=== PATIENT | female | born 1955 | race Caucasian/White ===

== ENCOUNTER → 2019-06-14 10:30 | Outpatient (CLI) | payer OTHER, SELFPAY ==
[2019-06-14 12:56] LABS: Alanine Aminotransferase 30 U/L (12-78); Albumin Level 4.3 gm/dL (3.4-5.0); Alkaline Phosphatase 101 U/L (46-116); Aspartate Amino Transferase 20 U/L (15-37); Bilirubin,Direct 0.1 mg/dL (0.0-0.2); Bilirubin,Indirect 0.4 mg/dL (0.0-0.9); Bilirubin,Total 0.5 mg/dL (0.2-1.0); Chol/HDL Ratio 3.5 (1-3.5); Cholesterol 206 mg/dL (140-200); HDL Cholesterol 59 mg/dL (29-89); LDL Cholesterol 118 mg/dL (0-130); Total Protein,Serum 7.5 gm/dL (6.4-8.2); Triglycerides 144 mg/dL (30-200); VLDL Cholesterol 29 mg/dL (0-40)
== END ==
PROVIDERS: Visit Provider Urology
DX: I11.9 Hypertensive heart disease without heart failure (principal); I34.0 Nonrheumatic mitral (valve) insufficiency; E78.49 Other hyperlipidemia; I49.3 Ventricular premature depolarization; I50.30 Unspecified diastolic (congestive) heart failure; I51.89 Other ill-defined heart diseases; R00.2 Palpitations
CPT/HCPCS: 36415; 80061; 80076

== ENCOUNTER → 2020-06-06 14:41 | Outpatient (CLI) | payer BC, MEDICAID, SELFPAY ==
[2020-06-06 16:06] LABS: Basophils # 0.1 K/mm3 (0-0.2); Basophils % 0.6 % (0.1-2.0); Eosinophils # 0.2 K/mm3 (0.0-0.4); Eosinophils % 2.2 % (0.1-12.0); Hematocrit 42.5 % (37.0-47.0); Hemoglobin 14.7 g/dL (12.2-16.2); Lymphocytes # 2.5 K/mm3 (0.7-4.5); Lymphocytes % 29.1 % (10-50); Mean Corpuscular HGB Conc 34.7 g/dL (31.8-35.4); Mean Corpuscular Hemoglobin 33.6 pg (27.0-31.2); Mean Corpuscular Volume 96.9 fl (81-99); Mean Platelet Volume 7.3 fl (7.4-10.4); Monocytes # 0.5 K/mm3 (0.1-1.0); Monocytes % 6.2 % (1.7-9.3); Neutrophils # 5.3 K/mm3 (1.8-7.8); Neutrophils % 61.9 % (37.0-80.0); Platelet Count 296 K/mm3 (142-424); Red Blood Count 4.39 M/mm3 (4.20-5.40); Red Cell Distribution Width 12.7 % (11.5-17.5); White Blood Count 8.6 K/mm3 (4.8-10.8)
[2020-06-06 16:38] LABS: Chloride 104 mmol/L (98-107); Sodium 140 mmol/L (136-145)
[2020-06-06 16:39] LABS: Potassium 4.7 mmoL/L (3.5-5.1)
[2020-06-06 16:41] LABS: Alanine Aminotransferase 28 U/L (12-78); Albumin Level 4.2 g/dl (3.5-5.0); Alkaline Phosphatase 78 U/L (38-126); Anion Gap 13.7 mEq/L (5-15); Aspartate Amino Transferase 31 U/L (14-36); Bilirubin,Direct 0.1 mg/dl (0.0-0.4); Bilirubin,Indirect 0.3 mg/dL (0.0-0.9); Bilirubin,Total 0.4 mg/dl (0.2-1.3); Bilirubin,Unconjugated 0.3 mg/dL (0.0-1.1); Blood Urea Nitrogen 24 mg/dl (7-17); Calcium 9.7 mg/dl (8.4-10.2); Carbon Dioxide 27 mmol/L (22.0-30.0); Cholesterol 191 mg/dl (140-200); Estimated Glomerular Filt Rate 72 ml/min (>60); GFR (African American) 88 ML/MIN (>60); Glucose 115 mg/dl (74-100); HDL Cholesterol 63 mg/dl (40-60); Total Protein,Serum 6.8 g/dl (6.3-8.2); Triglycerides 206 mg/dl (30-150); VLDL Cholesterol 41 mg/dL (0-40)
[2020-06-06 16:53] LABS: Direct LDL Cholesterol 98.62 mg/dL (100-129)
[2020-06-06 16:58] LABS: Free T4 (Free Thyroxine) 1.06 ng/dl (0.78-2.19)
[2020-06-06 17:13] LABS: Thyroid Stimulating Hormone 2.56 uIU/mL (0.465-4.68)
== END ==
PROVIDERS: PCP Family Medicine; Visit Provider Urology
DX: R00.2 Palpitations (principal); R55 Syncope and collapse; I50.30 Unspecified diastolic (congestive) heart failure; E78.5 Hyperlipidemia, unspecified; I11.9 Hypertensive heart disease without heart failure; I34.0 Nonrheumatic mitral (valve) insufficiency; I71.4 Abdominal aortic aneurysm, without rupture
CPT/HCPCS: 36415; 80048; 80061; 80076; 84439; 84443; 85025; 93270

== ENCOUNTER → 2020-06-13 06:00 | Outpatient (CLI) | payer BC, MEDICAID, SELFPAY ==
--- NOTE | 2020-06-13 06:13 | CA_ITS ---
APPROVED REPORT Exam: Pharmacologic Technologist: Tameka Beltrán Ht: 5 ft 4 in Wt: 234 lbs BSA: 2.09 m2 HR: 77 bpm BP: 123/90 mmHg Indications: Shortness of Breath Medical History Medications: Furosemide (LASIX),,,,, Metoprolol,,,,, Losartan,,,,, SpirOnolactone,,,,, Apixaban,,,,, Stress Test Details Test: LEXISCAN HR Resting HR: 79 bpm Max Heart Rate (APMHR): 157 bpm Max HR Achieved: 120 bpm Target HR (85% APMHR): 133 bpm % of APMHR: 76 Recovery HR: 85 bpm BP Resting BP: 123.0/90.0 mmHg Max BP: 140.0/90.0 mmHg Recovery BP: 140.0/90.0 mmHg ECG Clinical Exercise duration: 04:07 min Highest Stage Achieved: Exercise capacity: 1.0 METs Stress ECG Conclusion Resting ECG: Atrial fibrillation, PVCs vs aberrantly conducted beats, right axis deviation Symptoms: Mild shortness of air, malaise. No chest pain Arrhythmias/Ectopy: Frequent PVCs vs aberrantly conducted beats. ST-T Changes: 0.5 mm - [address] depression inferiorly. Conclusion: Non-diagnostic Lexiscan stress due to underlying atrial fibrillation. Myoview images reported separately. Electronically signed by : Tristan Shaw, 06/13/2020 18:43:22
--- NOTE | 2020-06-13 06:13 | NM_ITS ---
APPROVED REPORT Exam: Nuclear Stress Test Indication: SOB, Fatigue, Former tobacco use, Family history Patient Location: Outpatient Stress Tech: Tameka Jerel NM Tech:Linnette Butler, ARRT, RT (R)(N) Ht: 5 ft 4 in Wt: 234 lbs Bra Size: 40D HR: 77 bpm BP: 123/90 mmHg BSA: 2.09 m2 BMI: 40.1 History: SOB, Fatigue, Former tobacco use, Family history Procedure: Patient received a 0.4 mg of intravenous Lexiscan, resting heart rate 77 bpm, resting blood pressure 123/90 mmHg, with Lexiscan maximum heart rate achived was 90 bpm which is 85 % of the maximum predicted heart rate and blood pressure was 135/77 mmHg. With Lexiscan, patient denied any complaint of chest pain. Cardiac Stress and Resting SPECT Images: Cardiac Stress and Resting SPECT images were obtained using technetium 99m Myoview 32.1 mCi stress and 10.48 mCi at rest. The EF is calculated at 60% There is decrease activity in the anterior wall mid aspect which becomes normal on the delayed images as seen on the vertical long axis images suggesting a small area of ischemia vs an area of breast attenuation. Please correlate with ECG findings Conclusion: The EF is calculated at 60% There is decrease activity in the anterior wall mid aspect which becomes normal on the delayed images as seen on the vertical long axis images suggesting a small area of ischemia vs an area of breast attenuation. Please correlate with ECG findings Electronically signed by : Leonidas Stallworth MD 06/13/2020 11:03:50
--- NOTE | 2020-06-13 07:38 | CA_ITS ---
APPROVED REPORT EXAM: Comprehensive 2D, Doppler, and color-flow Echocardiogram Food Technician: Andie Talbert RVT Ht: 5 ft 4 in Wt: 234lbs BSA: 2.09 BP: 141/84 mmHg Indications: SOA,A-FIB,CHF,PALPS,HTN,HLD,MR,NEAR SYNCOPE,AAA EX SMOKER Echo Enhancing Agent Indication: Endocardial border delineation Agent(s) / Amount(s) Used: Definity 2 cc 2D Dimensions LVOT 2.65 cm (M/F) 1.5-2.5 M-Mode Dimensions RVDd 3.39 cm (0.9-2.6) LVDd 4.28 cm (3.5-5.7) LVDs 3.06 cm (3.5-5.7) IVSd 1.13 cm (0.6-1.1) PWd 0.99 cm (0.6-1.1) EF (Teich) 55.40% FS 28.50% EDV (Teich) 82.20 mL ESV (Teich) 36.70 mL Left Ventricle Technically difficult study because of the patient factors and poor acoustic windows. Definity contrast was utilized to delineate the endocardial surfaces. Left atrium is mildly enlarged, left ventricle is normal size, mild concentric left ventricular hypertrophy, visually estimated ejection fraction 50% with no regional wall motion abnormality, endocardial surfaces despite use of Definity contrast is poorly visualized. Diastolic parameters are inconclusive. Right Ventricle Right atrium and right ventricle are mildly enlarged with normal contractility. Aortic Valve Aortic valve is minimally thickened and fibrosed, there is no aortic stenosis or aortic insufficiency. Mitral Valve Mitral valve leaflets are minimally thickened, there is mild mitral regurgitation. Tricuspid Valve Tricuspid valve is grossly normal, there is mild tricuspid regurgitation, tricuspid regurgitation jet velocity is inadequate for calculation of the right ventricular systolic pressure. Pulmonic Valve Pulmonic valve is poorly visualized. Great Vessels Aortic root is normal size. Pericardium No significant pericardial effusion noted. Conclusion 1. Mild biatrial enlargement, normal left ventricular size, mild concentric left ventricular hypertrophy, visually estimated ejection fraction 50% with no regional wall motion abnormality, despite the use of Definity contrast endocardial surfaces are poorly visualized. Diastolic parameters are inconclusive. 2. Mildly enlarged right ventricle with normal contractility. 3. Mild mitral and tricuspid regurgitation. 4. No significant pericardial effusion noted. Electronically signed by : Tristan Shaw, 06/13/2020 20:48:02
--- NOTE | 2020-06-13 08:08 | HMH.ITSHM ---
Current Home Medications as stated by this patient Lynne Hand or liability claims representative. []FUROSEMIDE METOPROLOL SPIRONOLACTONE ELLIQUIS LOSARTAN
== END ==
PROVIDERS: PCP Family Medicine; Visit Provider Urology
DX: R06.00 Dyspnea, unspecified (principal); E78.5 Hyperlipidemia, unspecified; I11.9 Hypertensive heart disease without heart failure; I34.0 Nonrheumatic mitral (valve) insufficiency; I51.89 Other ill-defined heart diseases
CPT/HCPCS: 78452; 93017; 93306; A9502; J2785; Q9957

== ENCOUNTER 2020-06-19 08:29 | Day surgery (SDC) | payer BC, MEDICAID, SELFPAY ==
[2020-06-19] VITALS (13 sets, daily range): BP systolic 84–136; BP diastolic 51–107; PULSE 56–76; RESP 16–18; TEMP 36.7; O2SAT 89–97; BMI 40.8
--- NOTE | 2020-06-19 | IR_ITS ---
APPROVED REPORT Patient Location: Outpatient Compliance Tester: HAROLDO Garcia RT (R) PROCEDURES Left heart catheterization Left ventriculogram Selective coronary angiogram INDICATION Abnormal Myoview, Angina pectoris Informed consent was obtained prior to the procedure. COMPLICATIONS none Estimated Blood Loss: less than 10 mls TECHNIQUE One percent lidocaine used to anesthetize the right anterior aspect of the wrist. The right radial artery was accessed via the Seldinger technique. A 6 [place] sheath was placed in the right radial artery. 2.5 mg of verapamil, 800 mcg of nitroglycerin, 1mg Lidocaine and 5000 U Heparin were given through the arterial sheath. The trap catheter was also used to perform left heart catheterization, left ventriculogram and selective coronary angiogram. At the end of the procedure the sheath was removed good hemostasis was achieved using Traclet band, patient was transferred to the postop holding area in stable condition. ANGIOGRAPHIC RESULTS The left main artery Normal The left anterior descending artery Normal was slow flow consistent with endothelial dysfunction The circumflex artery Nondominant angiographically normal with slow flow consistent with endothelial dysfunction The right coronary artery Large dominant with no atherosclerotic plaque accompanied by slow flow consistent with endothelial dysfunction The DUVALL ventriculogram reveals Preserved 55 to 60% The left ventricular end-diastolic pressure Mildly elevated at 20 mmHg IMPRESSION No angiographic evidence of coronary artery atherosclerosis Slow flow down all 3 coronaries consistent with endothelial dysfunction Preserved ejection fraction Mildly elevated LVEDP PLAN 1. Medical management for endothelial dysfunction Electronically signed by : Juan Villegas, 06/19/2020 10:20:58
[2020-06-19 09:16] LABS: Chloride 107 mmol/L (98-107); Sodium 140 mmol/L (136-145)
[2020-06-19 09:17] LABS: Potassium 4.3 mmoL/L (3.5-5.1)
[2020-06-19 09:19] LABS: Hematocrit 43.2 % (37.0-47.0); Hemoglobin 14.8 g/dL (12.2-16.2); Mean Corpuscular HGB Conc 34.1 g/dL (31.8-35.4); Mean Corpuscular Hemoglobin 33.3 pg (27.0-31.2); Mean Corpuscular Volume 97.5 fl (81-99); Mean Platelet Volume 6.9 fl (7.4-10.4); Platelet Count 278 K/mm3 (142-424); Red Blood Count 4.43 M/mm3 (4.20-5.40); Red Cell Distribution Width 12.1 % (11.5-17.5); White Blood Count 7.8 K/mm3 (4.8-10.8)
[2020-06-19 09:20] LABS: Anion Gap 13.3 mEq/L (5-15); Basophils % 0.5 % (0.1-2.0); Blood Urea Nitrogen 27 mg/dl (7-17); Calcium 9.4 mg/dl (8.4-10.2); Carbon Dioxide 24 mmol/L (22.0-30.0); Creatinine Clearance Estimated 98 mL/min (50-200); Eosinophils # 0.2 K/mm3 (0.0-0.4); Eosinophils % 2.2 % (0.1-12.0); Estimated Glomerular Filt Rate 63 ml/min (>60); GFR (African American) 77 ML/MIN (>60); Glucose 118 mg/dl (74-100); Lymphocytes # 2.5 K/mm3 (0.7-4.5); Lymphocytes % 31.4 % (10-50); Monocytes # 0.4 K/mm3 (0.1-1.0); Monocytes % 5.1 % (1.7-9.3); Neutrophils # 4.7 K/mm3 (1.8-7.8); Neutrophils % 60.8 % (37.0-80.0)
[2020-06-19 09:53] LABS: Coronavirus 19 IgG Antibody Negative (Negative); Coronavirus 19 IgM Antibody Negative (Negative)
== END 2020-06-19 13:02 | disposition home or self-care (01) ==
LOC: CATHLAB 08:30
PROVIDERS: PCP Family Medicine; Visit Provider Internal Medicine
DX: R94.31 Abnormal electrocardiogram [ECG] [EKG] (principal); I11.0 Hypertensive heart disease with heart failure; I50.30 Unspecified diastolic (congestive) heart failure; E78.2 Mixed hyperlipidemia; Z87.891 Personal history of nicotine dependence; Z88.2 Allergy status to sulfonamides; Z88.0 Allergy status to penicillin; Z79.01 Long term (current) use of anticoagulants; Z79.899 Other long term (current) drug therapy; I48.91 Unspecified atrial fibrillation
CPT/HCPCS: 80048; 85025; 86328; 93458; 99152; C1725; C1769; J1644; Q9967

== ENCOUNTER → 2020-06-27 14:29 | Outpatient (CLI) | payer BC, MEDICAID, SELFPAY ==
[2020-06-27 15:31] LABS: Basophils # 0.1 K/mm3 (0-0.2); Basophils % 0.5 % (0.1-2.0); Eosinophils # 0.1 K/mm3 (0.0-0.4); Eosinophils % 1.2 % (0.1-12.0); Hematocrit 43.8 % (37.0-47.0); Hemoglobin 14.3 g/dL (12.2-16.2); Lymphocytes # 2.3 K/mm3 (0.7-4.5); Lymphocytes % 25.4 % (10-50); Mean Corpuscular HGB Conc 32.6 g/dL (31.8-35.4); Mean Corpuscular Hemoglobin 32.2 pg (27.0-31.2); Mean Platelet Volume 7.2 fl (7.4-10.4); Monocytes # 0.5 K/mm3 (0.1-1.0); Neutrophils # 6.1 K/mm3 (1.8-7.8); Neutrophils % 67.8 % (37.0-80.0); Platelet Count 305 K/mm3 (142-424); Red Blood Count 4.43 M/mm3 (4.20-5.40); Red Cell Distribution Width 12.2 % (11.5-17.5)
[2020-06-27 17:00] LABS: Chloride 102 mmol/L (98-107); Potassium 4.9 mmoL/L (3.5-5.1); Sodium 138 mmol/L (136-145)
[2020-06-27 17:03] LABS: Anion Gap 12.9 mEq/L (5-15); Blood Urea Nitrogen 23 mg/dl (7-17); Calcium 9.7 mg/dl (8.4-10.2); Carbon Dioxide 28 mmol/L (22.0-30.0); Estimated Glomerular Filt Rate 63 ml/min (>60); GFR (African American) 77 ML/MIN (>60); Glucose 100 mg/dl (74-100)
[2020-06-27 17:31] LABS: Coronavirus 19 IgG Antibody Negative (Negative); Coronavirus 19 IgM Antibody Negative (Negative)
== END ==
PROVIDERS: Visit Provider Internal Medicine
DX: Z01.89 Encounter for other specified special examinations (principal); I48.91 Unspecified atrial fibrillation
CPT/HCPCS: 36415; 80048; 85025; 86328

== ENCOUNTER 2020-06-29 12:05 | Day surgery (SDC) | payer BC, MEDICAID, SELFPAY ==
[2020-06-29 12:31] VITALS: BMI 40.5
--- NOTE | 2020-06-29 12:39 | CA_ITS ---
APPROVED REPORT EXAM: Comprehensive 2D, Doppler, and color-flow Echocardiogram Archeologist: RT Lulu(R) Ht: 5 ft 4 in Wt: 234lbs BSA: 2.09 BP: 117/67 mmHg Indications: AFIB, HTN, ex smoker, palpitations, fatigue, syncope, SOB, CHF, MR, AAA Procedure After obtaining informed consent, patient underwent transesophageal echo in the [facility] [employer] [facility]. Type of Sedation : Conscious Sedation Sedation was administered by Brendan Nolan C.R.N.A. Transesophageal probe was inserted and advanced into esophagus without difficulty by Dr. Luiz Perez. The KENIA was performed without complications. Synchronized Cardioversion attempted: Unsuccessful Throughout the procedure, the blood pressure, pulse oximetry, cardiac rhythm, and rate were monitored. The patient tolerated the procedure without adverse effects. Recovery from conscious sedation was uneventful and vital signs were stable. Left Ventricle Left ventricle is normal size, mild concentric left ventricular hypertrophy, visually estimated ejection fraction 55% with no regional wall motion abnormality. Right Ventricle Right ventricle is mildly enlarged with normal contractility. Atria Left atrium is moderately enlarged, left atrial appendage is free of thrombus. Right atrium is mildly enlarged. Intra-atrial septum is intact, there is no flow across the interatrial septum. Aortic Valve Aortic valve is minimally thickened and fibrosed, there is no aortic stenosis or aortic insufficiency. Mitral Valve Mitral valve is grossly normal, there is moderate mitral regurgitation. Tricuspid Valve Tricuspid valve grossly normal, there is mild tricuspid regurgitation. Pulmonic Valve Pulmonic valve is grossly normal. Great Vessels Aortic root is normal size. Pericardium No significant pericardial effusion noted. Conclusion 1. Biatrial enlargement, no left atrial appendage thrombus seen, there is poor appendage flow by spectral Doppler. 2. Normal left ventricular size mild concentric left ventricular hypertrophy preserved left ventricular systolic function. 3. Agitated saline contrast fails to identify intracardiac shunt. 4. Moderate mitral and mild tricuspid regurgitation. 5. No significant pericardial effusion noted 6. Electrical DC cardioversion fails to restore sinus rhythm. Patient tolerated the procedure well. Electronically signed by : Tristan Shaw, 06/29/2020 15:15:37
[2020-06-29 13:30] VITALS: BP 91/59; PULSE 92; RESP 20; O2SAT 95
[2020-06-29 13:56] VITALS: PULSE 74; RESP 20; O2SAT 95
--- NOTE | 2020-06-29 16:37 | HMH.ANESCL ---
[facility] Anesthesia Checklist - Structural Data Admitted From: Home Planned Operative Procedure/s: rebel/cardioversion Consent for Planned Operative Procedure(s) Verified: Yes - Airway Assessment C-Spine Mobility Assessed: Yes TMJ Mobility Assessed: Yes Dentition: Good Dentition - Neurological Assessment Level of Consciousness: Awake, Alert, Appropriate - Anesthesia Plan Anesthesia Risk discussed: Yes Anesthesia Plan: Verified ASA Class: III Anesthesia Type: MAC [facility] History I have reviewed the patient's past medical history: Yes Medical History: Reports:: Atrial Fibrillation, Congestive Heart Failure, Hypertension, Palpitations Denies:: Internal Pacemaker, Seizures *Have you ever received a pneumonia vaccine?: Yes *Have you received a flu vaccine this season?: Yes Other Medical History: Reports: Arthritis Anesthesia experience/problems:: none Other Surgeries: Yes: Cardiac Catheterization, Colonoscopy. No: Pacemaker Amputation: No Fractures: No - *Social History Smoking Status: Never smoker Alcohol Intake: never Alcohol Intake Frequency:: holidays/special occasions only Substance Use Type: denies use *Occupational Status:: retired Housing: house Household Members: spouse *Travel in the last 8 weeks: Inside the [facility] Family Hx:: Diabetes, Hypertension, Cancer
== END 2020-06-29 14:24 | disposition home or self-care (01) ==
LOC: CATHLAB 12:06
PROVIDERS: PCP Family Medicine; Visit Provider Internal Medicine Cardiovascular Disease
DX: I48.91 Unspecified atrial fibrillation (principal); I11.9 Hypertensive heart disease without heart failure; E78.5 Hyperlipidemia, unspecified; I20.8 Other forms of angina pectoris; I47.2 Ventricular tachycardia; R06.00 Dyspnea, unspecified; R94.39 Abnormal result of other cardiovascular function study; Z79.01 Long term (current) use of anticoagulants
CPT/HCPCS: 92960; 93312

== ENCOUNTER → 2020-08-11 15:54 | Outpatient (CLI) | payer BC, MEDICAID, SELFPAY | PROVIDERS: PCP Family Medicine; Visit Provider Internal Medicine Cardiovascular Disease | DX: G47.33 Obstructive sleep apnea (adult) (pediatric) (principal); R53.83 Other fatigue; R06.83 Snoring; R40.0 Somnolence; I49.9 Cardiac arrhythmia, unspecified | CPT/HCPCS: G0399 ==

== ENCOUNTER → 2021-05-24 06:33 | Outpatient (CLI) | payer BC, SELFPAY ==
--- NOTE | 2021-05-24 06:35 | NM_ITS ---
APPROVED REPORT Exam: Nuclear Stress Test Indication: hypertension..angina Patient Location: Outpatient Stress Tech: Tameka Beltrán MT Tech:HAROLDO Lim RT(R)(N) Ht: 5 ft 4 in Wt: 238 lbs Bra Size: 40d HR: 74 bpm BP: 118/65 mmHg BSA: 2.11 m2 BMI: 40.8 History: hypertension..angina Procedure: Patient received a 0.4 mg of intravenous Lexiscan, resting heart rate 74 bpm, resting blood pressure 118/65 mmHg, with Lexiscan maximum heart rate achived was 92 bpm which is Less than 85 % of the maximum predicted heart rate and blood pressure was 127/61 mmHg. With Lexiscan, patient denied any complaint of chest pain. Electrocardiogram Resting electrocardiogram shows sinus rhythm, with Lexiscan there is less than 1.[address] segment depression noted from the baseline EKG. The EKG portion of the Lexiscan Myoview is nondiagnostic. Cardiac Stress and Resting SPECT Images: Cardiac Stress and Resting SPECT images were obtained using technetium 99m Myoview 32.9 mCi stress and 10.28 mCi at rest. Gated SPECT for analysis of segmental wall motion and calculation of the ejection fraction also done. Prone images were also obtained. Cardiac stress and resting SPECT images show uniform myocardial activity without segmental perfusion abnormality, computer derived ejection fraction is 58% with no regional wall motion abnormality, right ventricle is normal size and contractility. Conclusion: 1. The EKG portion of the Lexiscan is nondiagnostic. 2. No scintigraphic evidence of reversible ischemia seen, computer derived ejection fraction 58% with no regional wall motion abnormality, right ventricle is normal size and contractility. 3. Normal Lexiscan Myoview study. Electronically signed by : Tristan Shaw MD 05/24/2021 13:48:39
--- NOTE | 2021-05-24 06:35 | CA_ITS ---
APPROVED REPORT Exam: Pharmacologic Technologist: Tameka Beltrán Ht: 5 ft 4 in Wt: 237 lbs BSA: 2.10 m2 HR: 72 bpm BP: 118/65 mmHg Indications: Angina, AAA Medical History Medications: Metoprolol,,,,, Flecainide,,,,, Losartan,,,,, Pantoprazole,,,,, Spironolactone,,,,, Apixaban,,,,, Furosemide,,,,, Stress Test Details Test: LEXISCAN HR Resting HR: 74 bpm Max Heart Rate (APMHR): 156 bpm Max HR Achieved: 92 bpm Target HR (85% APMHR): 132 bpm % of APMHR: 58 Recovery HR: 79 bpm BP Resting BP: 118.0/65.0 mmHg Max BP: 127.0/61.0 mmHg Recovery BP: 119.0/63.0 mmHg ECG Resting ECG: Normal sinus rhythm, PVC Clinical Exercise duration: 04:15 min Highest Stage Achieved: Exercise capacity: 1.0 METs Stress ECG Conclusion Symptoms: Mild shortness of air, malaise. No chest pain. Arrhythmias/Ectopy: Rare PAC ST-T Changes: No significant changes. Conclusion: Unremarkable Lexiscan stress. Myoview images reported separately. Electronically signed by : Tristan Shaw MD 05/24/2021 11:25:54
--- NOTE | 2021-05-24 06:35 | US_ITS ---
PROCEDURE: US ABD. AORTA SCREENING CLINICAL INDICATION: Screening COMPARISON: No exams were available for comparison FINDINGS: No evidence of aortic aneurysm. Common iliacs are upper normal at 1.4 and 1.5 cm. IMPRESSION: No evidence of aortic aneurysm Dictated by: Leonidas Stallworth MD 05/24/2021 16:07 Leonidas Stallworth MD in OV 05/24/2021 16:07
== END ==
PROVIDERS: PCP Family Medicine; Visit Provider Nurse Practitioner Family
DX: I20.9 Angina pectoris, unspecified (principal); I48.19 Other persistent atrial fibrillation; I34.0 Nonrheumatic mitral (valve) insufficiency; I50.32 Chronic diastolic (congestive) heart failure; I11.0 Hypertensive heart disease with heart failure; E78.2 Mixed hyperlipidemia; I71.4 Abdominal aortic aneurysm, without rupture
CPT/HCPCS: 76705; 78452; 93017; A9502; J2785

== ENCOUNTER → 2022-04-24 13:50 | Outpatient (CLI) | payer MEDICARE, SELFPAY ==
[2022-04-24 16:25] LABS: Alanine Aminotransferase 63 U/L (12-78); Albumin Level 4.2 g/dl (3.5-5.0); Alkaline Phosphatase 131 U/L (38-126); Aspartate Amino Transferase 52 U/L (14-36); Bilirubin,Direct 0.2 mg/dl (0.0-0.4); Bilirubin,Total 0.2 mg/dl (0.2-1.3); Chol/HDL Ratio 3.7 (1-3.5); Cholesterol 185 mg/dl (140-200); HDL Cholesterol 50 mg/dl (40-60); Total Protein,Serum 6.8 g/dl (6.3-8.2); Triglycerides 212 mg/dl (30-150); VLDL Cholesterol 42 mg/dL (0-40)
== END ==
PROVIDERS: PCP Family Medicine; Visit Provider Nurse Practitioner
DX: E78.5 Hyperlipidemia, unspecified (principal); I11.9 Hypertensive heart disease without heart failure; I25.10 Atherosclerotic heart disease of native coronary artery without angina pectoris; I34.0 Nonrheumatic mitral (valve) insufficiency; I48.91 Unspecified atrial fibrillation; I50.30 Unspecified diastolic (congestive) heart failure; I71.4 Abdominal aortic aneurysm, without rupture; R00.2 Palpitations; R61 Generalized hyperhidrosis
CPT/HCPCS: 36415; 80061; 80076

== ENCOUNTER → 2022-11-19 13:58 | Outpatient (CLI) | payer MEDICARE, SELFPAY ==
--- NOTE | 2022-11-19 13:59 | CA_ITS ---
APPROVED REPORT EXAM: Comprehensive 2D, Doppler, and color-flow Echocardiogram Wirer: GENO May, RVS Ht: 5 ft 4 in Wt: 239lbs BSA: 2.11 BP: 160/81 mmHg Indications: CAD, HX-AFIB, Cardioversion, CAD Echo Enhancing Agent Comments: Poor acoustic windows due to body habitus & tissue attenuation. Imaging protocol out of sequence. Technically limited study 2D Dimensions Aortic Root 3.29 cm LA Volume 81.80 mL Left Atrium 2.68 cm LA Volume Index 37.90 mL/m2 (M/F) 16-34 LVOT 2.05 cm (M/F) 1.5-2.5 M-Mode Dimensions RVDd 2.98 cm (0.9-2.6) LA Diam 3.20 cm (1.9-4.0) LVDd 5.07 cm (3.5-5.7) Ao Diam 3.83 cm (2.0-3.7) LVDs 3.53 cm (3.5-5.7) IVSd 0.85 cm (0.6-1.1) PWd 0.89 cm (0.6-1.1) EF (Teich) 57.30% FS 30.20% EDV (Teich) 121.60 mL TAPSE 2.17 (<1.7) ESV (Teich) 51.90 mL LV Diastology E Decel Time 147.00 (160-240 msec) E/A Ratio 1.15 MED E' 6.60 (< 7 cm/sec) MED A' 9.80 cm/s E'/MED E' Ratio 10.00 (>14) LAT E' 7.30 (<10 cm/sec) LAT A' 9.60 cm/s E/LAT E' Ratio 9.04 (>14) Aortic Valve LVOT Max 79.00 (70-110 cm/s) LVOT VTI 11.91 cm AoV Peak Ortega. 138.00 (50-130 cm/s) AO Peak GR. 7.60 mmHg AO Mean GR. 3.80 (<5 mmHg) AO VTI 25.46 (18-25 cm) JUSTIN (VTI) 1.54 (2.5-4.5 cm2) Mitral Valve MV A Velocity 57.00 (40-130 cm/s) E/A Ratio 1.15 MV Decel. Time 147.00 (160-240 ms) MV PHT 57.00 ms Pulmonary Valve PV Peak Velocity 70.00 (50-150 cm/s) Tricuspid Valve TR P. Velocity 180.00 cm/s RAP Estimate 10.00 mmHg RVSP 22.90 mmHg Left Ventricle Left atrium is mildly enlarged, left ventricle is normal size, estimated ejection fraction 55% with no regional wall motion abnormality, diastolic parameters are inconclusive. Right Ventricle Right atrium and right ventricular normal size and contractility. Aortic Valve Aortic valve is minimally thickened and fibrosed there is no aortic stenosis or aortic insufficiency. Mitral Valve Mitral valve is grossly normal, there is trace mitral regurgitation. Tricuspid Valve Tricuspid valve grossly normal, there is trace tricuspid regurgitation, tricuspid regurgitation jet plus is inadequate for calculation of the right ventricular systolic pressure. Pulmonic Valve Pulmonic valve is poorly visualized. Great Vessels Aortic root is normal size. Inferior vena cava is normal size with normal inspiratory collapse. Pericardium No significant pericardial effusion noted. Conclusion 1. Mildly enlarged left atrium, normal left ventricular size, mild concentric left ventricular hypertrophy, estimated ejection fraction 55% with no regional wall motion abnormality, diastolic parameters are inconclusive. 2. Trace mitral and tricuspid regurgitation. 3. No significant pericardial effusion noted. 4. Inferior vena cava is normal size with normal inspiratory collapse. Electronically signed by : Tristan Shaw MD 11/19/2022 18:37:54
== END ==
LOC: RT 13:59
PROVIDERS: PCP Family Medicine; Visit Provider Nurse Practitioner
DX: E78.2 Mixed hyperlipidemia (principal); I25.118 Atherosclerotic heart disease of native coronary artery with other forms of angina pectoris; I48.0 Paroxysmal atrial fibrillation; I50.32 Chronic diastolic (congestive) heart failure; I51.9 Heart disease, unspecified; K21.9 Gastro-esophageal reflux disease without esophagitis
CPT/HCPCS: 93306

== ENCOUNTER → 2023-06-03 14:58 | Outpatient (CLI) | payer MEDICARE, SELFPAY ==
--- NOTE | 2023-06-03 14:59 | CA_ITS ---
FINAL REPORT TECHNIQUE: Color Doppler, duplex Doppler and compression sonography of the right lower extremity venous system was performed. CLINICAL HISTORY: right ankle bruising/swelling unprovoked.S/p long bus ride, on bloodthinners COMPARISON: None FINDINGS: There is no evidence of deep venous thrombosis from the level of the groin to the calf. The veins are patent and compressible. IMPRESSION: No evidence of deep venous thrombosis right lower extremity. Reviewed, Interpreted and Dictated by Ronny Cullen III, MD Transcribed by Eusebia Mendoza Authenticated and [facility]
[2023-06-03 15:51] LABS: Basophils % 0.4 % (0.1-2.0); Eosinophils # 0.2 K/mm3 (0.0-0.4); Eosinophils % 2.2 % (0.1-12.0); Hematocrit 42.7 % (37.0-47.0); Hemoglobin 13.7 g/dL (12.2-16.2); Lymphocytes # 2.4 K/mm3 (0.7-4.5); Lymphocytes % 30.7 % (10-50); Mean Corpuscular HGB Conc 32.1 g/dL (31.8-35.4); Mean Corpuscular Hemoglobin 31.2 pg (27.0-31.2); Mean Corpuscular Volume 97.3 fl (81-99); Mean Platelet Volume 7.4 fl (7.4-10.4); Monocytes # 0.4 K/mm3 (0.1-1.0); Monocytes % 4.5 % (1.7-9.3); Neutrophils # 4.9 K/mm3 (1.8-7.8); Neutrophils % 62.1 % (37.0-80.0); Platelet Count 315 K/mm3 (142-424); Red Blood Count 4.38 M/mm3 (4.20-5.40); Red Cell Distribution Width 12.8 % (11.5-17.5)
== END ==
PROVIDERS: PCP Family Medicine; Visit Provider Physician Assistant
DX: S90.00XA Contusion of unspecified ankle, initial encounter; M79.604 Pain in right leg; M25.471 Effusion, right ankle
CPT/HCPCS: 36415; 85025; 93971

== ENCOUNTER 2023-11-18 11:22 | Outpatient (CLI) | payer MEDICARE, SELFPAY ==
[2023-11-18 12:08] LABS: Alanine Aminotransferase 63 U/L (12-78); Albumin Level 4.4 g/dl (3.5-5.0); Alkaline Phosphatase 110 U/L (38-126); Anion Gap 8.9 mEq/L (5-15); Aspartate Amino Transferase 51 U/L (14-36); Bilirubin,Direct 0.2 mg/dl (0.0-0.4); Bilirubin,Indirect 0.3 mg/dL (0.0-0.9); Bilirubin,Total 0.5 mg/dl (0.2-1.3); Bilirubin,Unconjugated 0.3 mg/dL (0.0-1.1); Blood Urea Nitrogen 16 mg/dl (7-17); Calcium 9.3 mg/dl (8.4-10.2); Carbon Dioxide 30 mmol/L (22.0-30.0); Chloride 103 mmol/L (98-107); Chol/HDL Ratio 3.7 (1-3.5); Cholesterol 195 mg/dl (140-200); Estimated Glomerular Filt Rate 83 ml/min (>60); GFR (African American) 101 ML/MIN (>60); Glucose 161 mg/dl (74-100); HDL Cholesterol 53 mg/dl (40-60); Magnesium 2.1 mg/dl (1.6-2.3); Potassium 3.9 mmoL/L (3.5-5.1); Sodium 138 mmol/L (136-145); Total Protein,Serum 7.1 g/dl (6.3-8.2); Triglycerides 123 mg/dl (30-150); VLDL Cholesterol 25 mg/dL (0-40)
[2023-11-18 12:19] LABS: Direct LDL Cholesterol 104.65 mg/dL (100-129)
[2023-11-18 12:28] LABS: Free T4 (Free Thyroxine) 1.12 ng/dl (0.78-2.19)
[2023-11-18 12:31] LABS: Basophils % 0.3 % (0.1-2.0); Eosinophils # 0.1 K/mm3 (0.0-0.4); Eosinophils % 1.1 % (0.1-12.0); Hematocrit 44.6 % (37.0-47.0); Hemoglobin 14.2 g/dL (12.2-16.2); Lymphocytes # 1.9 K/mm3 (0.7-4.5); Lymphocytes % 29.9 % (10-50); Mean Corpuscular HGB Conc 31.8 g/dL (31.8-35.4); Mean Corpuscular Hemoglobin 31.9 pg (27.0-31.2); Mean Corpuscular Volume 100.3 fl (81-99); Mean Platelet Volume 6.6 fl (7.4-10.4); Monocytes # 0.3 K/mm3 (0.1-1.0); Neutrophils # 4.1 K/mm3 (1.8-7.8); Neutrophils % 63.7 % (37.0-80.0); Platelet Count 315 K/mm3 (142-424); Red Blood Count 4.44 M/mm3 (4.20-5.40); Red Cell Distribution Width 12.6 % (11.5-17.5); White Blood Count 6.4 K/mm3 (4.8-10.8)
[2023-11-18 12:41] LABS: Thyroid Stimulating Hormone 1.88 uIU/mL (0.465-4.68)
[2023-11-19 16:35] LABS: Albumin 3.9 g/dL (2.9-4.4); Alpha-1-Globulin 0.3 g/dL (0.0-0.4); Alpha-2-Globulin 0.7 g/dL (0.4-1.0); Immunoglobulin A, Qn 324 mg/dL (87-352); Immunoglobulin G, Qn 1110 mg/dL (586-1602); Immunoglobulin M, Qn 52 mg/dL (26-217); Protein, Total 7.2 g/dL (6.0-8.5)
[2023-11-20 13:49] LABS: Albumin, U 24.4 % (.); Alpha-1-Globulin, U 10.1 % (.); Alpha-2-Globulin, U 22.3 % (.); Beta Globulin, U 25.8 % (.); Gamma Globulin, U 17.4 % (.); M-Spike, % Not Observed % (Not Observed); Protein,Total,Urine <4.0 mg/dL (Not Estab.)
[2023-11-21 10:21] LABS: PDF SCANNED IMAGE
[2023-11-21 10:22] LABS: Free Kappa Lt Chains 31.2
[2023-11-21 10:43] LABS: PDF: SCANNED IMAGE
== END 2023-11-18 23:59 ==
PROVIDERS: PCP Family Medicine; Visit Provider Internal Medicine
DX: E78.5 Hyperlipidemia, unspecified (principal); I25.10 Atherosclerotic heart disease of native coronary artery without angina pectoris; I48.0 Paroxysmal atrial fibrillation; I50.30 Unspecified diastolic (congestive) heart failure; K21.9 Gastro-esophageal reflux disease without esophagitis; I51.9 Heart disease, unspecified
CPT/HCPCS: 36415; 80048; 80061; 80076; 82784; 83735; 83883; 84155; 84156; 84165; 84166; 84439; 84443; 85025; 86334; 86335

== ENCOUNTER 2023-11-28 09:13 | Outpatient (CLI) | payer MEDICARE, SELFPAY ==
--- NOTE | 2023-11-28 09:24 | MR_ITS ---
APPROVED REPORT Desk Reporter: CLINICAL INDICATION HFpEF, evaluation for infiltrative disease TECHNIQUE Image Acquisition: Cardiac magnetic resonance (CMR) was performed on Siemens Espree MRI 1.5T scanner. Software platform sequences were performed using the Siemens EchoSign MR B19 platform. A set of three-plane, low-resolution, large dyllz-au-fxde localizers were initially acquired. Then axial, coronal, sagittal TrueFISP, as well as axial HASTE images, were obtained. These were followed by gated TrueFISP breathold cinematic sequences obtained in the short axis with 8 mm slices and 2 mm gaps, 2-chamber (vertical long axis), 3-chamber, 4-chamber (horizontal long axis). A bolus of contrast was injected intravenously with first-pass sequences obtained in the short axis and four-chamber planes. After approximately 10 minutes, a TI semiconductor development technician sequence was performed to determine the optimal TI time. Using the optimized TI time, delayed contrast enhancement segmented inversion???recovery TurboFLASH sequences were obtained in the short axis, 2-chamber, 3-chamber, and 4-chamber projections. 2D-velocity phase mapping was performed. Functional parameters were calculated by offline analysis on an independent workstation ([employer] Imaging Platform, [id number] 1). Contrast: ProHance??? (Gadoteridol) FINDINGS MORPHOLOGY AND FUNCTION Left ventricle: The left ventricle is normal in size. The indexed left ventricular end-diastolic volume (LVEDVi) is 69 ml/m2 (reference range 57-105 ml/m2 in males, 56-96 ml/m2 in females). Normal left ventricular systolic function is present. There is normal left ventricular wall thickness. There are no regional wall motion abnormalities noted. LVEF is calculated at 57.2% (reference range 57-77%). Right ventricle: The right ventricle is normal in size. The indexed right ventricular end-diastolic volume (RVEDVi) is 55 ml/m2 (reference range 61-121 ml/m2 in males, 48-112 ml/m2 in females). Normal right ventricular systolic function is present. RVEF is calculated at 56.0% (reference range 52-72% in males, 51-71% in females). Atria: The left atrium is normal in size. The maximum indexed left atrial volume is 36 ml/m2 (reference range 26-52 ml/m2 in males, 27-53 ml/m2 in females). The right atrium is normal in size. The maximum indexed right atrial volume is 39 ml/m2 (reference range 18-90 ml/m2). Aorta: The diameter of the aortic annulus is normal, measuring 26 mm (coronal view reference range 21-30 mm in males, 19-27 mm in females). The diameter of the aortic sinus is normal, measuring 35 mm (coronal view reference range 25-42 mm in males, 24-36 mm in females). The diameter of the sinotubular junction is normal, measuring 28 mm (coronal view reference range 18-32 mm in males, 18-28 mm in females). The diameters of the ascending and descending thoracic aorta are normal. Main pulmonary artery: The main pulmonary artery diameter is normal. Pericardium: The pericardial thickness is normal. The pericardial thickness measures 2.0 cm (normal < 4.0 cm). There is no pericardial effusion. VALVES The valvular morphologies in the visualized sequences appear normal. There is no significant valvular stenosis or regurgitation of the mitral, aortic, tricuspid, or pulmonic valve noted visually. Systolic anterior motion of the mitral valve is not visualized. Ratio of pulmonary to systemic flow, Qp:Qs ratio = 1.0 (normal < or = 1.2), demonstrating no evidence of hemodynamically significant shunt. TISSUE CHARACTERIZATION Resting Perfusion: Normal myocardial blood flow at rest. No evidence of resting hypoperfusion. Myocardial Fibrosis and/or edema: Normal gadolinium kinetics are present. No evidence of late gadolinium enhancement is noted, consistent with absence of myocardial scarring, infarction, or necrosis. T2-weighted imaging demonstrates no evidence of myocardial edema or inflammation. OTHER No other significant findings are noted. However, this exam is focused on the cardiac structure and function. IMPRESSION Normal LV size with normal LV systolic function. LVEDVi= 69 ml/m2 and LVEF= 57.2%. Normal RV size with normal RV systolic function. RVEDVi= 55 ml/m2 and RVEF= 56.0%. No atrial enlargement. No CMR evidence of myocardial scarring, infarction, or necrosis. No evidence of myocardial edema or inflammation. Perfusion analysis demonstrates normal blood flow at rest with no evidence of resting hypoperfusion. Ratio of pulmonary to systemic flow, Qp:Qs ratio = 1.0 (normal < or = 1.2), demonstrating no evidence of hemodynamically significant shunt. Overall, this CMR demonstrates normal biventricular systolic function. No evidence of LGE. No CMR evidence of infiltrative cardiomyopathy. COMPARISON None CRITICAL RESULT None COMMUNICATION Per this written report The findings of this cardiac MR were reviewed, reported, and signed by Yang Mcclellan MD (Electrical Contacts Adjuster). Conclusion Electronically signed by : Denia Mcclellan MD 12/22/2023 14:19:12
[2023-11-28 10:09] LABS: Alanine Aminotransferase 64 U/L (12-78); Albumin Level 4.3 g/dl (3.5-5.0); Alkaline Phosphatase 97 U/L (38-126); Aspartate Amino Transferase 55 U/L (14-36); Bilirubin,Direct 0.1 mg/dl (0.0-0.4); Bilirubin,Indirect 0.3 mg/dL (0.0-0.9); Bilirubin,Total 0.4 mg/dl (0.2-1.3); Bilirubin,Unconjugated 0.3 mg/dL (0.0-1.1); Chol/HDL Ratio 3.7 (1-3.5); Cholesterol 173 mg/dl (140-200); HDL Cholesterol 47 mg/dl (40-60); Total Protein,Serum 6.9 g/dl (6.3-8.2); Triglycerides 179 mg/dl (30-150); VLDL Cholesterol 36 mg/dL (0-40)
[2023-11-28 10:20] LABS: Direct LDL Cholesterol 84.12 mg/dL (100-129)
[2023-11-28] MEDS: 0.9 % SODIUM CHLORIDE 50 ML VIAL IV (12:15)
[2023-11-28] MEDS: GADOTERIDOL INJ 17ML SYRINGE 22 ML IV (12:15)
[2023-11-28] MEDS: SODIUM CHLORIDE 0.9% 10ML SYR (RAD ONLY) 10 ML IV (12:15)
[2023-12-02 15:18] LABS: Albumin, U 43.8 % (.); Alpha-1-Globulin, U 4.4 % (.); Alpha-2-Globulin, U 19.4 % (.); Beta Globulin, U 22.9 % (.); Gamma Globulin, U 9.6 % (.); M-Spike, % Not Observed % (Not Observed); Prot,24hr calculated 159 mg/24 hr (30-150); Protein,Total,Urine 6.9 mg/dL (Not Estab.)
[2023-12-04 09:52] LABS: PDF: SCANNED IMAGE
== END 2023-11-28 23:59 ==
LOC: RAD 09:14
PROVIDERS: Visit Provider Internal Medicine
DX: I48.0 Paroxysmal atrial fibrillation (principal); I11.0 Hypertensive heart disease with heart failure; I50.30 Unspecified diastolic (congestive) heart failure; I25.10 Atherosclerotic heart disease of native coronary artery without angina pectoris; I34.0 Nonrheumatic mitral (valve) insufficiency; E78.5 Hyperlipidemia, unspecified; K21.9 Gastro-esophageal reflux disease without esophagitis
CPT/HCPCS: 36415; 75561; 80061; 80076; 84156; 84166; A9576

== ENCOUNTER 2023-12-01 07:30 | Outpatient (CLI) | payer MEDICARE, SELFPAY ==
--- NOTE | 2023-12-01 07:34 | NM_ITS ---
APPROVED REPORT Mold Stamper: Procedure: 99mTc-PYP Cardiac Amyloidosis Imaging Clinical Indication: Heart failure, increased LV wall thickness Protocol: The patient received 27.1 mCi 99mTc-PYP intravenously. Planar and SPECT imaging was performed approximately 3 hours post injection. Planar images included anterior, left lateral and MACI-45 projections. Findings: Visual interpretation: Planar and SPECT images were reviewed The overall quality of the study was good. Semi quantitative SPECT findings showed a grade 0. Impression: 1. Overall, the quality of the study was good. 2. Semi quantitative SPECT findings showed grade 0. 3. Overall interpretation of the findings is not suggestive of ATTR amyloidosis. This study and report were reviewed and signed by Yang Mcclellan MD (attending radiologist). Conclusion Electronically signed by : Denia Mcclellan MD 12/22/2023 14:04:19
[2023-12-01] MEDS: PYROPHOSPHATE CARDIAC (PYP);1 DOSE VIAL IV (10:42)
[2023-12-01] MEDS: SODIUM CHLORIDE 0.9% 10ML SYR (RAD ONLY) 10 ML IV (10:42)
== END 2023-12-01 23:59 ==
LOC: RAD 07:31
PROVIDERS: Visit Provider Internal Medicine
DX: I48.0 Paroxysmal atrial fibrillation (principal); I50.30 Unspecified diastolic (congestive) heart failure; I25.10 Atherosclerotic heart disease of native coronary artery without angina pectoris; E78.5 Hyperlipidemia, unspecified
CPT/HCPCS: 78803

== ENCOUNTER 2024-01-19 14:26 | Outpatient (CLI) | payer MEDICARE, SELFPAY ==
[2024-01-19 14:56] LABS: Basophils # 0.1 K/mm3 (0-0.2); Basophils % 0.6 % (0.1-2.0); Eosinophils # 0.1 K/mm3 (0.0-0.4); Eosinophils % 1.1 % (0.1-12.0); Hematocrit 43.1 % (37.0-47.0); Hemoglobin 14.6 g/dL (12.2-16.2); Lymphocytes # 2.4 K/mm3 (0.7-4.5); Mean Corpuscular HGB Conc 33.9 g/dL (31.8-35.4); Mean Corpuscular Hemoglobin 32.9 pg (27.0-31.2); Mean Corpuscular Volume 97.1 fl (81-99); Mean Platelet Volume 7.3 fl (7.4-10.4); Monocytes # 0.5 K/mm3 (0.1-1.0); Monocytes % 4.4 % (1.7-9.3); Neutrophils # 9.2 K/mm3 (1.8-7.8); Neutrophils % 74.8 % (37.0-80.0); Platelet Count 365 K/mm3 (142-424); Red Blood Count 4.44 M/mm3 (4.20-5.40); Red Cell Distribution Width 13.3 % (11.5-17.5); White Blood Count 12.3 K/mm3 (4.8-10.8)
[2024-01-19 15:51] LABS: Alanine Aminotransferase 67 U/L (12-78); Albumin Level 4.3 g/dl (3.5-5.0); Alkaline Phosphatase 95 U/L (38-126); Anion Gap 12.8 mEq/L (5-15); Aspartate Amino Transferase 47 U/L (14-36); Bilirubin,Direct 0.2 mg/dl (0.0-0.4); Bilirubin,Indirect 0.3 mg/dL (0.0-0.9); Bilirubin,Total 0.5 mg/dl (0.2-1.3); Bilirubin,Unconjugated 0.3 mg/dL (0.0-1.1); Blood Urea Nitrogen 23 mg/dl (7-17); Calcium 9.7 mg/dl (8.4-10.2); Carbon Dioxide 27 mmol/L (22.0-30.0); Chloride 100 mmol/L (98-107); Chol/HDL Ratio 2.4 (1-3.5); Cholesterol 202 mg/dl (140-200); Estimated Glomerular Filt Rate 100 ml/min (>60); GFR (African American) 121 ML/MIN (>60); Glucose 185 mg/dl (74-100); HDL Cholesterol 83 mg/dl (40-60); Magnesium 2.1 mg/dl (1.6-2.3); Potassium 4.8 mmoL/L (3.5-5.1); Sodium 135 mmol/L (136-145); Triglycerides 202 mg/dl (30-150); VLDL Cholesterol 40 mg/dL (0-40)
[2024-01-19 16:02] LABS: Direct LDL Cholesterol 96.02 mg/dL (100-129)
== END 2024-01-19 23:59 | disposition home or self-care (01) ==
LOC: LAB 14:27
PROVIDERS: PCP Family Medicine; Visit Provider Internal Medicine
DX: I50.30 Unspecified diastolic (congestive) heart failure (principal); E13.69 Other specified diabetes mellitus with other specified complication; I48.0 Paroxysmal atrial fibrillation; K21.9 Gastro-esophageal reflux disease without esophagitis; I25.118 Atherosclerotic heart disease of native coronary artery with other forms of angina pectoris; E78.2 Mixed hyperlipidemia; I50.32 Chronic diastolic (congestive) heart failure; I51.9 Heart disease, unspecified; Z79.85 Long-term (current) use of injectable non-insulin antidiabetic drugs
CPT/HCPCS: 36415; 80048; 80061; 80076; 83735; 84439; 84443; 85025

== ENCOUNTER 2024-04-26 14:50 | Outpatient (CLI) | payer MEDICARE, SELFPAY ==
[2024-04-26 15:27] LABS: Basophils # 0.1 K/mm3 (0-0.2); Basophils % 0.7 % (0.1-2.0); Eosinophils # 0.2 K/mm3 (0.0-0.4); Eosinophils % 1.3 % (0.1-12.0); Hematocrit 48.4 % (37.0-47.0); Hemoglobin 15.4 g/dL (12.2-16.2); Lymphocytes # 3.8 K/mm3 (0.7-4.5); Lymphocytes % 28.5 % (10-50); Mean Corpuscular HGB Conc 31.8 g/dL (31.8-35.4); Mean Corpuscular Hemoglobin 32.8 pg (27.0-31.2); Mean Platelet Volume 7.7 fl (7.4-10.4); Monocytes # 0.6 K/mm3 (0.1-1.0); Monocytes % 4.6 % (1.7-9.3); Neutrophils # 8.7 K/mm3 (1.8-7.8); Neutrophils % 64.9 % (37.0-80.0); Platelet Count 375 K/mm3 (142-424); Red Cell Distribution Width 13.1 % (11.5-17.5); White Blood Count 13.4 K/mm3 (4.8-10.8)
[2024-04-26 16:28] LABS: Free T4 (Free Thyroxine) 1.05 ng/dl (0.78-2.19)
[2024-04-26 16:42] LABS: Thyroid Stimulating Hormone 2.11 uIU/mL (0.465-4.68)
[2024-04-26 17:18] LABS: Anion Gap 15.7 mEq/L (5-15); Bilirubin,Indirect 0.5 mg/dL (0.0-0.9); Bilirubin,Total 0.5 mg/dl (0.2-1.3); Blood Urea Nitrogen 35 mg/dl (7-17); Carbon Dioxide 24 mmol/L (22.0-30.0); Chloride 101 mmol/L (98-107); Estimated Glomerular Filt Rate 50 ml/min (>60); GFR (African American) 60 ML/MIN (>60); Glucose 157 mg/dl (74-100); Potassium 3.7 mmoL/L (3.5-5.1); Sodium 137 mmol/L (136-145)
[2024-04-26 17:19] LABS: Alanine Aminotransferase 51 U/L (12-78); Aspartate Amino Transferase 39 U/L (14-36); Total Protein,Serum 6.6 g/dl (6.3-8.2)
[2024-04-26 17:20] LABS: Albumin Level 4.2 g/dl (3.5-5.0); Alkaline Phosphatase 80 U/L (38-126); Bilirubin,Unconjugated 0.5 mg/dL (0.0-1.1); Chol/HDL Ratio 2.6 (1-3.5); Cholesterol 203 mg/dl (140-200); Direct LDL Cholesterol 88.08 mg/dL (100-129); HDL Cholesterol 77 mg/dl (40-60); Triglycerides 243 mg/dl (30-150); VLDL Cholesterol 49 mg/dL (0-40)
== END 2024-04-26 23:59 | disposition home or self-care (01) ==
LOC: LAB 14:51
PROVIDERS: PCP Nurse Practitioner Family; Visit Provider Physician Assistant
DX: I50.30 Unspecified diastolic (congestive) heart failure (principal); I48.0 Paroxysmal atrial fibrillation; K21.9 Gastro-esophageal reflux disease without esophagitis; I25.118 Atherosclerotic heart disease of native coronary artery with other forms of angina pectoris; I51.9 Heart disease, unspecified; I50.32 Chronic diastolic (congestive) heart failure; E78.2 Mixed hyperlipidemia; E13.69 Other specified diabetes mellitus with other specified complication
CPT/HCPCS: 36415; 80048; 80061; 80076; 83735; 84439; 84443; 85025